=== PATIENT | male | born 1995 | race African-American/Black ===

== ENCOUNTER 2021-09-09 08:07 | Emergency (ER) | payer BC, MEDICAID ==
[~2021-09-09] VITALS: Ht 185.4 cm; Wt 81.8 kg
[2021-09-09 08:08] VITALS: BP 149/87
[2021-09-09] MEDS ORDERED: ibuprofen tablet 400 MG TABLET PO ONE (10:35)
[2021-09-09] MEDS ORDERED: predniSONE 20 mg tablet PO ONE (10:35)
[2021-09-09] MEDS ORDERED: amoxicillin 250mg capsule PO ONE (12:05)
[2021-09-09] MEDS ORDERED: AMOX500C2 PO (12:10)
[2021-09-09] MEDS ORDERED: METH4TAB3 PO (12:10)
== END 2021-09-09 12:19 | disposition home or self-care (01) ==
LOC: ER 08:08
DX: J02.0 Streptococcal pharyngitis (principal); Z20.822 Contact with and (suspected) exposure to COVID-19
CPT/HCPCS: 87635; 87880; 99284; C9803; J7512